=== PATIENT | female | born 1965 | race African-American/Black ===

== ENCOUNTER → 2016-06-23 | Outpatient (CLI) | payer BC ==
[~2016-06-23] MED LIST: IRON SUPPLEMENT1 TAB PO; NO MEDICATIONS
--- NOTE | ~2016-06-23 | US128 ---
[id number] [facility] [address] [place], [place] [address] [id number] O MR#: [id number] Acc #: [id number] NAME: KIMBERLY MCDONALD : 1965 SEX: F STUDY DATE/TIME: 06/23/2016 14:06 UNIT: [facility]US ROOM: STUDY DESCRIPTION: US Thyroid Attending Physician: Stephane Marks M.D. Ordering Physician: Stephane Marks M.D. Primary Care Physician: Stephane Marks M.D. MEDICAL IMAGING REPORT This report is preliminary unless electronic signature is present EXAM Thyroid ultrasound, 06/23/2016 at 14:06. HISTORY Thyromegaly. COMPARISON STUDIES None FINDINGS The right thyroid lobe measures 4.8 x 1 x 1.4 cm. The isthmus measures 4.4 mm in thickness. The left thyroid lobe measures 4.4 x 1 x 1.6 cm. A single hypoechoic solid-appearing well-circumscribed nodule is demonstrated within the lateral right mid thyroid lobe, measuring 4.6 x 3.7 x 4.9 mm. A benign-appearing simple cyst is demonstrated within the lateral left mid to upper thyroid pole, measuring 7 x 5.2 x 6.5 mm. 2 hypoechoic solid-appearing nodules are demonstrated within the left lower thyroid pole medially, the most superior measuring 4.8 x 4.4 x 5.4 mm, and the more inferior measuring 4.9 x 4.5 x 5.2 mm. The thyroid parenchyma does not appear abnormally hyperemic. No suspicious microcalcifications are seen. IMPRESSION Mild generalized thyroid enlargement. Small [id number] solid nodules are demonstrated within the bilateral thyroid lobes, and a single benign-appearing simple cyst measuring 7 mm in the left upper thyroid pole. None of these nodules meets sonographic criteria to warrant fine needle aspiration. Dictated by... Tammy Sevilla M.D. THIS IS AN ELECTRONICALLY VERIFIED REPORT Tammy Sevilla M.D. at 06/25/2016 2:13 PM HAYLEE/nika TD: 06/24/2016 12:45 JOB #: [id number] MEDICAL IMAGING REPORT COPY
== END | disposition home or self-care (01) ==
LOC: CGUS 13:27
DX: E04.9 Nontoxic goiter, unspecified (principal); E04.2 Nontoxic multinodular goiter
CPT/HCPCS: 76536